=== PATIENT | male | born 1955 | race African-American/Black ===

== ENCOUNTER 2019-06-10 14:11 | Inpatient (IN) | payer OTHER ==
[~2019-06-10] VITALS: Ht 177.8 cm; Wt 181.0 kg
--- NOTE | 2019-06-10 14:11 | NUR ---
PT TO ROOM VIA WHEELCHAIR.
--- NOTE | 2019-06-10 14:20 | NUR ---
PT WITH SOB AND AUDIBLE WHEEZING. 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 PT STATES HE HAS BEEN IN "A LOT OF DUST".
[2019-06-10 14:42] LABS: GFR > 60 ML/MIN (>=60 (CALC)); GFR FOR AFR.AMER. > 60 ML/MIN (>=60 (CALC))
[2019-06-10 14:47] LABS: HEMATOCRIT 39.1 % (39.0-50.0); HEMOGLOBIN 11.1 g/dl (14.0-18.0); IMMATURE GRANULOCYTES 0.2 % (0.0-5.0); MEAN CELL VOLUME 94.7 fL CALC (80.0-100.0); MEAN CORPUSCULAR HGB 26.9 pG CALC (26.0-32.0); MEAN CORPUSCULAR HGB CONC 28.4 g/L CALC (32.0-36.0); RED BLOOD COUNT 4.13 mill/uL (4.70-6.10); RED CELL DISTRI WIDTH 13.6 % (11.5-15.5)
--- NOTE | 2019-06-10 15:00 | NUR ---
PT URINATED 300CC DARK ANUP URINE. SPECIMEN OBTAINED
[2019-06-10 15:19] LABS: ALBUMIN 4.1 g/dL (3.2-5.0); ALKALINE PHOSPHATASE 54 u/l (38-126); ANION GAP 13 (6-22 (CALC)); BILIRUBIN, TOTAL 0.5 mg/dL (0.0-1.4); BUN 16 mg/dL (8-23); BUN/CREATININE RATIO 22 (12-20 (CALC)); CARBON DIOXIDE 32 mmol/l (22-30); CHLORIDE 95 mmol/l (95-108); CREATININE 0.7 mg/dL (0.7-1.3); GFR > 60 ML/MIN (>=60 (CALC)); GFR FOR AFR.AMER. > 60 ML/MIN (>=60 (CALC)); POTASSIUM 4.7 mmol/l (3.5-5.1); SGOT/AST 22 u/l (19-48); SODIUM 136 mmol/l (137-146); TOTAL PROTEIN 7.2 g/dL (6.3-8.2)
--- NOTE | 2019-06-10 15:40 | NUR ---
PT RETURNED FROM CT WITH MILD TACHYPNEA. O2 SAT 95% ON O2@2LPM VIA NC. RT AT BEDSIDE AND NEB TX ADMINISTERED. NOTIFIED BY OIL RECOVERY UNIT OPERATOR LINDA THAT PT WAS GIVEN "A DOUBLE DOSE OF CONTRAST PER RAD MD HUIZAR. AND PT WOULD NEED HYDRATED TO CLEAR THE KIDNEYS" DR HESTER MADE AWARE.
--- NOTE | 2019-06-10 16:34 | NUR ---
EMPTIED 500 CC CLEAR YELLOW URINE. PT STATES "I JUST WANT TO SLEEP".
--- NOTE | 2019-06-10 17:37 | NUR ---
INITATED NEB TX FOR WHEEZING. PT ASSISTED UP TO BED SIDE CHAIR FOR COMFORT. PT STATES BREATHING IS MUCH EASIER SITTING UP. WARM BLANKET FOR COMFORT.
--- NOTE | 2019-06-10 17:40 | NUR ---
PT URINATED 800CC CLEAR STRAW COLORED URINE
--- NOTE | 2019-06-10 17:42 | NUR ---
ATTEMPTED TO CARIN LREPORT. NURSE IN ROOM UNABL ETO TAKE REPORT
--- NOTE | 2019-06-10 18:25 | NUR ---
CALLED REPORT TO EFRAIN TANNER
[2019-06-10] MEDS ORDERED: METOPROL TAR25 MG PO (18:30)
[2019-06-10] MEDS ORDERED: ENALAPRIL10 MG PO (18:30)
[2019-06-10] MEDS ORDERED: LASIX 20 MG TAB20 MG PO (18:31)
[2019-06-10] MEDS ORDERED: GLYBURID MCR1.5 MG PO (18:31)
[2019-06-10] MEDS ORDERED: SYMBICORT1 AE1 IN (18:31)
--- NOTE | 2019-06-10 18:40 | NUR ---
PT TRANSPORTED TO [place] VIA WC ON O2@3LPM VIA NC IN NO DISTRESS
--- NOTE | 2019-06-10 18:45 | NUR ---
PATIENT RECEIVED INTO ROOM 274 FROM ER VIA WC. ALERT AND ORIENTED. RESP WEAVER. ASSISTED TP BED-SITTING AT SIDE OF BED TO EAT DINNER. ORIENTED TO SURROUNDINGS. CALL HUTCHINS IN REACH.
--- NOTE | 2019-06-10 19:45 | NUR ---
PT RESTING IN BED ALERT AND ORIENTED. ASSESSMENT COMPLETED AND VS OBTAINED AT THIS TIME. RESPIRATIONS EVEN AND UNLABORED ON O2 @ 2L VIA NC. LUNGS SOUND DIMINISHED. PEDAL PULSES STRONG. EDEMA NOTED IN THE LOWER EXTREMITIES. PT DENIES ANY PAIN OR DISCOMFORT AT THIS TIME. TELE IN PLACE. PT ORIENTED TO ROOM AND CALL HUTCHINS SYSTEM. SAFEY PRECAUTIONS IN PLACE. WILL CONTINUE TO MONITOR.
[2019-06-10 20:00] VITALS: BP 143/89
--- NOTE | 2019-06-10 20:11 | NUR ---
MD NOTIFIED OF PT BP BEING ELIVATED, CONFIDENTIAL INVESTIGATOR PROVIDED WITH ORDERS TO BE CARRIED OUT.
[2019-06-11] VITALS (7 sets, daily range): BP systolic 110–150; BP diastolic 58–78
--- NOTE | 2019-06-11 01:38 | NUR ---
PT RESTING IN BED, RESPIRATIONS EVEN AND UNLABORED ON O2. NO S/S OF DISTRESS AT THIS TIME. SAFETY PRECAUTIONS IN PLACE. WILL CONTINUE TO MONITOR.
--- NOTE | 2019-06-11 03:54 | NUR ---
PT PROVIDED WITH WENDY PER REQUEST.
--- NOTE | 2019-06-11 07:15 | NUR ---
PATIENT AWAKENS TO NAME. RESP SLT LABORED. NON-PRODUCTIVE COUGH PRESENT. BREATH SOUNDS DIMINISHED THROUGHOUT LUNG MARIE. GNERALIZED EDEMA PRESENT. 4+ PITTING EDEMA OF BLE. SALINE LOCK INTACT IN RAC, SITE HEALTHY. VOIDS CLEAR YELLOW URINE. TELEMETRY IN PLACE SHOWING SR. DISCUSSED PLAN OF CARE. DENIES NEEDS AT THIS TIME. CALL HUTCHINS IN REACH.
--- NOTE | 2019-06-11 10:00 | NUR ---
PATIENT NAPPING. O2 ON AT 4 L NC.
--- NOTE | 2019-06-11 11:50 | NUR ---
UP TO BR FOR BM THEN SO SIDE OF BED FOR LUNCH. SOB INCREASED WITH EXERTION.
--- NOTE | 2019-06-11 13:30 | NUR ---
O2 DECREASED TO 3 L NC. O2 SAT 97% WILL MONITOR PATIENT CLOSELY FOR DESATURATION.
--- NOTE | 2019-06-11 14:00 | NUR ---
ASSISTED UP TO RECLINER. O2 DECREASED TO 2 L NC. O2 SAT 95%
--- NOTE | 2019-06-11 14:30 | NUR ---
O2 DECREASED TO 1 L NC.
--- NOTE | 2019-06-11 15:00 | NUR ---
O2 SAT 93-94% ON O2 AT 1 L NC.
--- NOTE | 2019-06-11 16:00 | NUR ---
REMAINS UP IN RECLINER. RESP NON-LABORED AT REST. O2 SAT 93-94% ON I L O2 PER NC.
--- NOTE | 2019-06-11 19:30 | NUR ---
PATIENT SITTING UP IN RECLINER WITH O2 VIA NASAL CANNULA IN PLACE. PATIENT IS AWAKE ALERT AND ORIENTEDX3. PATIENT IS SOB EVEN AT REST. LUNGS ARE DIMINISHED THOUGHTOUT. TELE MONITOR IN PLACE. IV SITE TO RAC INTACT AND HEALTHY AT THIS ITME WITH GOOD BLOOD RETURN. BLE EDEMA 4+-ENCOURAGED ELEVATION. SAFETY PRECAUTIONS REINFORCED. CALL LIGHT IN REACH. WILL CONT TO MONITOR.
--- NOTE | 2019-06-11 22:30 | NUR ---
PATIENT WAS FOUND DIRTY FROM BM AND ASSISTED WITH COMPLETE BED BATH AND LINEN CHANGE. ACCU-CHECK WAS 194. COVERED WITH NOVALOG 1UNITS PER SLIDING SCALE COVERGE PROTOCOL. ROCEPHIN HUNG ORDERED VIA [facility] SITE. SITE REMAINS HEALTHY WITH GOOD BLOOD RETURN. PATIENT PROVIDED WITH HS SNACK. PATIENT WITH O2 IN PLACE AND STILL SOB WITH LITTLE OR NO EXHERTION. PATIENT STATES THAT HE NORMALLY USES C-PAP AT HOME BUT DOESN'T HAVE IT WITH HIM HERE. STATES THAT HE LIVES IN [place] TRAVELING WITH [facility]. SAFETY PRECAUTIONS REINFORCED. CALL LIGHT IN REACH. WILL CONT TO MONITOR.
--- NOTE | 2019-06-12 01:01 | NUR ---
RESPONDED TO PATIENT ROOM TO CHECK TELE MONITOR. PATIENT IS SITTING UP ON THE SIDE OF THE BED WITH O2 OFF. 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 PATIENT WITH BELONGINGS BAGS GOING THRY THEM. PATIENT LINEN AND SELF FOUND AGAIN WITH BROWN STOOL. PATIENT ASSISTED TO BSC AND O2 REAPPLIED. PATIENT HAD MOD AMT OF FORMED BROWN STOOL. BEING ASSISTED IN SHOWER AT THIS TIME. LINENS TO BED CHANGED AGAIN. WILL CONT TO MONITOR.
[2019-06-12 01:13] VITALS: BP 136/72
--- NOTE | 2019-06-12 04:00 | NUR ---
PATIENT APPEARS SLEEPING ON HIS SIDE WITH O2 VIA NASAL CANNULA IN PLACE. EYES CLOSED. CALL LIGHT IN REACH. WILL CONT TO MONITOR.
[2019-06-12 04:15] VITALS: BP 121/59
[2019-06-12 06:40] LABS: HEMATOCRIT 38.5 % (39.0-50.0); MEAN CELL VOLUME 95.8 fL CALC (80.0-100.0); MEAN CORPUSCULAR HGB 27.4 pG CALC (26.0-32.0); MEAN CORPUSCULAR HGB CONC 28.6 g/L CALC (32.0-36.0); RED BLOOD COUNT 4.02 mill/uL (4.70-6.10); RED CELL DISTRI WIDTH 13.2 % (11.5-15.5)
[2019-06-12 06:54] LABS: ALKALINE PHOSPHATASE 52 u/l (38-126); BILIRUBIN, TOTAL 0.3 mg/dL (0.0-1.4); BUN 25 mg/dL (8-23); BUN/CREATININE RATIO 39 (12-20 (CALC)); CHLORIDE 93 mmol/l (95-108); CREATININE 0.7 mg/dL (0.7-1.3); GFR > 60 ML/MIN (>=60 (CALC)); GFR FOR AFR.AMER. > 60 ML/MIN (>=60 (CALC)); SGOT/AST 24 u/l (19-48); SODIUM 137 mmol/l (137-146); TOTAL PROTEIN 7.3 g/dL (6.3-8.2)
[2019-06-12 07:01] LABS: ANION GAP 11 (6-22 (CALC)); CARBON DIOXIDE 38 mmol/l (22-30)
[2019-06-12 07:25] LABS: POTASSIUM 5.4 mmol/l (3.5-5.1)
[2019-06-12 07:34] VITALS: BP 136/65
--- NOTE | 2019-06-12 08:15 | NUR ---
PT IS RESTING IN HIS RIGHT SIDE. ASSESSMENT DONE. PT IS ALERT BUT DROWSY. PT DENIES PAIN AT THIS TIME. TELE IN PLACE. 02 2.5L VIA VT. PT DENIES NEEDS AT THIS TIME. CALL LIGHT IN REACH.
[2019-06-12 10:50] VITALS: BP 138/85
--- NOTE | 2019-06-12 11:00 | NUR ---
PT IS VISITING IN ROOM WITH FRIENDS. CALL LIGHT IN REACH.
--- NOTE | 2019-06-12 12:00 | NUR ---
PT IS SITTING IN THE SIDE OF THE BED EAT HIS LUNCH. PT DENIES ANY NEEDS AT THIS TME. CALL LIGHT IN REACH.
--- NOTE | 2019-06-12 16:04 | NUR ---
PT IS SITTING IN THE SIDE OF THE BED. PT DENIES NEEDS AT THIS TIME. CALL LIGHT IN REACH.
[2019-06-12 16:30] VITALS: BP 154/85
[2019-06-12 19:10] VITALS: BP 148/64
--- NOTE | 2019-06-12 19:30 | NUR ---
PATIENT RESTING IN BED WITH HOB ELEVATED AND O2 VIA NASAL CANNULA IN PLACE. PATIENT IS STILL SOB WITH LITTLE OR NO EXHERSION. AWAKE ALERT AND ORIENTED-STILL DIFFICULT TO UNDERSTAND AT TIMES. LUNGS DIMINISHED THROUGHOUT. TELE MONITOR IN PLACE. BLE SWELLING. ENCOURAGED TO ELEVATE ON PILLOWS WHEN POSSIBLE. SALINE LOCK TO RAC INTACT-APPEARS HEALTHY AT THIS TIME. SAFETY PRECAUTIONS REINFORCED. CALL LIGHT IN REACH. WILL CONTTO MONITOR.
--- NOTE | 2019-06-13 | NUR ---
PATIENT APPEARS SLEEPING AT THIS TIME WITH O2 VIA NASAL CANNULA IN PLACE. HOB ELEVATED. TELE MONITOR IN PLACE. CALL LIGHT IN REACH. WILL CONT TO MONITOR.
--- NOTE | 2019-06-13 03:56 | NUR ---
PATIENT RESTING IN BED WITH HOB ELEVATED AND O2 VIA NASAL CANNULA IN PLACE. EYES CLOSED AND APPEARS SLEEPING. NOISEY BREATHING NOTED. TELE MONITOR IN PLACE. IV SITE TO RIGHT AC INTACT. CALL LIGHT IN REACH. WILL CONT TO MONITOR.
[2019-06-13 04:13] VITALS: BP 149/66
[2019-06-13 05:21] LABS: HEMATOCRIT 38.8 % (39.0-50.0); HEMOGLOBIN 11.1 g/dl (14.0-18.0); IMMATURE GRANULOCYTES 0.4 % (0.0-5.0); MEAN CELL VOLUME 95.1 fL CALC (80.0-100.0); MEAN CORPUSCULAR HGB 27.2 pG CALC (26.0-32.0); MEAN CORPUSCULAR HGB CONC 28.6 g/L CALC (32.0-36.0); NEUT# 12.41 thou/uL (1.82-7.42); RED BLOOD COUNT 4.08 mill/uL (4.70-6.10); RED CELL DISTRI WIDTH 13.3 % (11.5-15.5)
[2019-06-13 05:52] LABS: ALBUMIN 4.1 g/dL (3.2-5.0); ALKALINE PHOSPHATASE 52 u/l (38-126); ANION GAP 12 (6-22 (CALC)); BILIRUBIN, TOTAL 0.4 mg/dL (0.0-1.4); BUN 25 mg/dL (8-23); BUN/CREATININE RATIO 37 (12-20 (CALC)); CARBON DIOXIDE 38 mmol/l (22-30); CHLORIDE 94 mmol/l (95-108); CREATININE 0.7 mg/dL (0.7-1.3); GFR > 60 ML/MIN (>=60 (CALC)); GFR FOR AFR.AMER. > 60 ML/MIN (>=60 (CALC)); POTASSIUM 5.1 mmol/l (3.5-5.1); SGOT/AST 20 u/l (19-48); SODIUM 138 mmol/l (137-146); TOTAL PROTEIN 7.4 g/dL (6.3-8.2)
[2019-06-13 07:53] VITALS: BP 128/82
--- NOTE | 2019-06-13 09:00 | NUR ---
PT ALERT AND ORIENTED X 3, LARGE MAN. LUNGS CLEAR BUT SOUND DIMINISHED PER GIRTH. SKIN INTACT. PT RECEIVING RESP TXs. VSS,
[2019-06-13 12:21] VITALS: BP 134/79
[2019-06-13 15:30] VITALS: BP 146/66
--- NOTE | 2019-06-13 18:00 | NUR ---
PT HAS BEEN FITTED WITH C-PAP MASK, WHICH HE WILL TRY TO USE TONIGHT. PT WITH VISITORS AT BEDSIDE THIS AFTERNOON.
[2019-06-13 19:00] VITALS: BP 113/66
--- NOTE | 2019-06-13 20:00 | NUR ---
PATIENT RESTING IN BED WITH HOB ELEVATED AND O2 VIA NASAL CANNULA IN PLACE. PATIENT IS AWAKE ALERT AND ORIENTEDX3-SPEECH IS SOMEWHAT GARBLED BUT ABLE TO UNDERSTAND. PATIENT WITH NO NEEDS VOICED AT THIS ITME. TELE MONITOR IN PLACE.SALINE LOCK TO RIGHT AC INTACT AND APPEARSHEALTHY AT THIS TIME. STILL WITH BLE SWELLING-ENCOURGAED ELEVATION WHEN ABLE. SAFETY PRECAUTIONS REINFORCED. CALL LIGHT IN REACH. WILL CONT TO MONITOR.
--- NOTE | 2019-06-14 | NUR ---
PATIENT RESTING IN BED AT THIS TIME WITH HOB ELEVATED AND O2 VIA NASAL CANNULA IN PLACE. EYES CLOSED APPEARS SLEEPING. TELE MONITOR IN PLACE. SALINE LOCK TO RIGHT AC INTACT-APPEARS HEALTHY AT THIS TIME. SPOKE WITH URBANO LEONARD-STATES THAT PATIENT REFUSED C-PAP TONIGHT. VOIDING QS ANUP URINE IN URINAL. CALL LIGHT IN REACH. WILL CONT TO MONITOR.
[2019-06-14 00:16] VITALS: BP 122/68
[2019-06-14 03:45] VITALS: BP 126/75
--- NOTE | 2019-06-14 05:00 | NUR ---
PATIENT APPEARS SLEEPING IN BED AT THIS TIME. POSITIONED ON LEFT SIDE. O2 VIA NASAL CANNULA IN PLACE. TELE MONITOR IN PLACE. CALL LIGHT IN REACH. WILL CONT TO MONITOR.
[2019-06-14 05:43] LABS: HEMATOCRIT 38.1 % (39.0-50.0); MEAN CORPUSCULAR HGB 27.4 pG CALC (26.0-32.0); MEAN CORPUSCULAR HGB CONC 28.9 g/L CALC (32.0-36.0); RED BLOOD COUNT 4.01 mill/uL (4.70-6.10); RED CELL DISTRI WIDTH 13.3 % (11.5-15.5)
[2019-06-14 06:02] LABS: BUN 30 mg/dL (8-23); BUN/CREATININE RATIO 41 (12-20 (CALC)); CHLORIDE 92 mmol/l (95-108); CREATININE 0.7 mg/dL (0.7-1.3); GFR > 60 ML/MIN (>=60 (CALC)); GFR FOR AFR.AMER. > 60 ML/MIN (>=60 (CALC)); SODIUM 137 mmol/l (137-146)
[2019-06-14 06:07] LABS: ANION GAP 10 (6-22 (CALC)); CARBON DIOXIDE > 40 mmol/l (22-30)
[2019-06-14 07:30] VITALS: BP 118/61
--- NOTE | 2019-06-14 09:00 | NUR ---
PT AWAKE, ALERT, ORIENTED X 3, LARGE MAN. LUNGS CLEAR BUT DIMINISHED PER GIRTH, USES 4 LPM NC. PT WEAVER. NO ACUTE DISTRESS NOTED.
[2019-06-14 11:39] VITALS: BP 160/86
[2019-06-14] MEDS ORDERED: PREDNISONE10 MG PO (12:19)
[2019-06-14] MEDS ORDERED: Levaquin PO (12:23)
[2019-06-14] MEDS ORDERED: IPRATROPIU0.5 MG/3 M IN (13:01)
--- NOTE | 2019-06-14 13:05 | NUR ---
PT SEEN BY DR FRAZIER AND KEAGAN THIS MORNING, DISCUSSED DISCHARGE TODAY. PT REMAINS STABLE, NO COMPLAINTS OR EVIDENCE OF DISTRESS.
--- NOTE | 2019-06-14 13:56 | NUR ---
PT HAS BEEN DISCHARGED TO HOME AT THIS TIME. PT VERBALIZED UNDERSTANDING OF DC INSTRUCTIONS, TAKEN BY LARGE WHEELCHAIR TO VEHICLE BY VOLUNTEER. PT LEAVES [facility] IN STABLE CONDITION.
== END 2019-06-14 14:00 | disposition home or self-care (01) | DRG 190 ==
LOC: ED 14:11 → ED-I 16:43 → ED 17:08 → MS2 17:09
PROVIDERS: Family Medicine; Nurse Practitioner Family; ADMIT Internal Medicine; ATTEND Internal Medicine
DX: J44.1 Chronic obstructive pulmonary disease with (acute) exacerbation (principal); J96.22 Acute and chronic respiratory failure with hypercapnia; J96.21 Acute and chronic respiratory failure with hypoxia; Z68.43 Body mass index [BMI] 50.0-59.9, adult; E11.9 Type 2 diabetes mellitus without complications; I10 Essential (primary) hypertension; G47.33 Obstructive sleep apnea (adult) (pediatric); E66.01 Morbid (severe) obesity due to excess calories; Z91.19 Patient's noncompliance with other medical treatment and regimen; Z79.84 Long term (current) use of oral hypoglycemic drugs; Z87.891 Personal history of nicotine dependence
CPT/HCPCS: J1650

== ENCOUNTER 2019-06-14 15:28 | Observation (INO) | payer OTHER ==
[~2019-06-14] VITALS: Ht 177.8 cm; Wt 176.0 kg
[~2019-06-14 15:28] MED LIST: ENALAPRIL10 MG PO; GLYBURID MCR1.5 MG PO; IPRATROPIU0.5 MG/3 M IN; LASIX 20 MG TAB20 MG PO; Levaquin PO; METOPROL TAR25 MG PO; PREDNISONE10 MG PO; SYMBICORT1 AE1 IN
--- NOTE | 2019-06-14 15:33 | NUR ---
PATIENT TO ROOM VIA WHEELCHAIR AND PHYSICIAN NOTIFIED OF PATIENT STATUS
--- NOTE | 2019-06-14 16:00 | NUR ---
PT PRESENTED WITH SOB BECAUSE HE DOES NOT HAVE O2 AT HOME AND HE STATES BEING O2 DEPENDENT. PT IS AT 2 L OF O2 NC. HOB ELEVATED. WILL CONTINUE TO MONITOR.
--- NOTE | 2019-06-14 17:20 | NUR ---
CALLED REPORT TO ANSHU
--- NOTE | 2019-06-14 17:30 | NUR ---
REPORT RECEIVED FROM ANNETTE IN ED, PT TRANSPORTED TO UNIT VIA W/C @ 1730 AND TRANSFERRED TO BED. O2 @ 2.5L VIA NC IN PLACE, TELE MONITOR IN PLACE. ORIENTED TO ROOM AND CALL HUTCHINS. ASSISTED TO BR AND WITH TRISTEN-CARE, SETTLED IN BED, WILL CONTINUE TO MONITOR.
--- NOTE | 2019-06-14 17:32 | NUR ---
PT TRANSPORTED TO [facility] VIA W/C STABLE AND NO DISTRESS WITH O2 AT 2 L. CARE ASSUMED TO ANSHU
[2019-06-14 17:59] VITALS: BP 149/77
[2019-06-14 19:30] VITALS: BP 131/80
--- NOTE | 2019-06-14 20:00 | NUR ---
ASSESSMENT COMPLETED. SOB ON EXERTION NOTED. O2 INFUSING PER NC PER ORDER AND CPAP AT BEDSIDE; NOTIFIED RT TO SET UP FOR PT. LARGE SKIN TAG NOTED TO LEFT BUTTOCK INTACT. TELEMETRY IN PLACE. UPDATED ON POC. CALL LIGHT IS IN REACH. WILL CONTINUE TO MONITOR.
--- NOTE | 2019-06-14 20:35 | NUR ---
SPOKE WITH DR. EUCEDA AND NOTIFIED DIVINE OF NO MEDICATION ORDERS FOR PT. PER MD SHE WILL PLACE ORDERS IN COMPUTER.
[2019-06-14 23:40] VITALS: BP 142/79
--- NOTE | 2019-06-15 | NUR ---
SITTING UP IN BED AND ASKING FOR A SNACK; PROVIDED AT THIS TIME. ENCOURAGED TO LEAVE CPAP ON. URINAL EMPTIED. CALL LIGHT IS IN REACH.
--- NOTE | 2019-06-15 02:30 | NUR ---
PT. SITTING UP IN BED AGAIN ASKING FOR ANOTHER SNACK AND SOMETHING TO DRINK; PROVIDED AT THIS TIME. CALL LIGHT AND URINAL IN REACH.
[2019-06-15 03:56] VITALS: BP 135/74
[2019-06-15 05:12] LABS: HEMATOCRIT 39.2 % (39.0-50.0); HEMOGLOBIN 11.4 g/dl (14.0-18.0); IMMATURE GRANULOCYTES 0.3 % (0.0-5.0); MEAN CELL VOLUME 95.1 fL CALC (80.0-100.0); MEAN CORPUSCULAR HGB 27.7 pG CALC (26.0-32.0); MEAN CORPUSCULAR HGB CONC 29.1 g/L CALC (32.0-36.0); NEUT# 7.77 thou/uL (1.82-7.42); RED BLOOD COUNT 4.12 mill/uL (4.70-6.10); RED CELL DISTRI WIDTH 13.4 % (11.5-15.5)
[2019-06-15 05:30] LABS: ALBUMIN 3.5 g/dL (3.2-5.0); ALKALINE PHOSPHATASE 43 u/l (38-126); BUN 30 mg/dL (8-23); BUN/CREATININE RATIO 39 (12-20 (CALC)); CHLORIDE 91 mmol/l (95-108); CREATININE 0.8 mg/dL (0.7-1.3); GFR > 60 ML/MIN (>=60 (CALC)); GFR FOR AFR.AMER. > 60 ML/MIN (>=60 (CALC)); POTASSIUM 4.5 mmol/l (3.5-5.1); SGOT/AST 21 u/l (19-48); SODIUM 136 mmol/l (137-146); TOTAL PROTEIN 6.5 g/dL (6.3-8.2)
[2019-06-15 05:36] LABS: ANION GAP 11 (6-22 (CALC)); BILIRUBIN, TOTAL 0.8 mg/dL (0.0-1.4); CARBON DIOXIDE 39 mmol/l (22-30)
--- NOTE | 2019-06-15 05:40 | NUR ---
PT. DECLINED HEPARIN SHOT AND REPORTS HE WANTS TO SPEAK TO MD PRIOR TO ANYMORE MEDICATIONS.
--- NOTE | 2019-06-15 07:13 | NUR ---
SHIFT CHANGE REPORT, PT AWAKE ALERT AND ORIENTED RESTING IN BED, C-PAP IN PLACE, TELE MONITOR IN PLACE STATES HE FEELS OK BUT HAS MUCH CONCERNS ABOUT HIS MEDICATION, ADVISED WILL ADDRESS CONCERNS TOBIAS WHEN MEDICAL STAFF GETS HERE. BED IN LOWEST POSITION AND CALL HUTCHINS IN REACH.
[2019-06-15 08:05] VITALS: BP 113/73
--- NOTE | 2019-06-15 08:21 | NUR ---
PT REFUSING TO TAKE PREDNISONE AND LISINOPRIL STATING THOSE ARE NOT ANY OF HIS MEDICATIONS AND THAT HIS MED STARTS WITH AND "E" BUT UNABLE TO TELL ME THE NAME, SAID HE WANTS TO REVIEW MEDS WITH MD WHEN HE GETS HERE.
[2019-06-15 10:40] VITALS: BP 127/78
--- NOTE | 2019-06-15 12:00 | NUR ---
SITTING UP IN RECLINER, COMPANY DELIVERED 5 CYLINDERS O2 BUT PT STATED HE LIVES IN [facility], O2 REP EXPLAINED HOW TO USE PORTABLE OXYGEN AND INFORMED PT THOSE TANKS WILL NOT LAST TOO LONG. REP STAYED IN ROOM AT LEAST 45 MINS TRYING TO SOLVE SITUATION AND FINALLY LEFT 5 TANKS WHEN PT COULD NOT CONTACT ANY FAMIY MEMBER WHO WOULD ACCOMMODATE HIM TEMPORARILY WITH HIS O2 NEEDS.
[2019-06-15 15:20] VITALS: BP 130/78
--- NOTE | 2019-06-15 16:00 | NUR ---
PT SITTING UP IN CHAIR, CONVERSING ON PHONE, CALL HUTCHINS IN REACH, WILL CONTINUE TO MONITOR.
[2019-06-15 19:16] VITALS: BP 133/78
[2019-06-15 23:49] VITALS: BP 130/77
[2019-06-16 04:26] VITALS: BP 137/87
--- NOTE | 2019-06-16 06:21 | NUR ---
PT HAS NO C/O PAIN/DISCOMFORT, PT STATES PAIN IS 0/10 ON PAIN SCALE. PT IS STABLE WITH NO S/S OF ANY ACUTE DISTRESS NOTED.
--- NOTE | 2019-06-16 07:00 | NUR ---
SHIFT CHANGE REPORT, PT SITTING UP IN KEVIN SLEEPING, AWAKENED TO VERBAL STIMULI, NURSE REVIEWED AND EDUCATED PT ON AM MEDICATIONS, HE STATED UNDERSTANDING AND CLMPLIED. O2 @ 3L VIA NC IN PLACE, TELE MONITOR IN PLACE, NO C/O DISCOMFORT, CALL HUTCHINS IN REACH.
[2019-06-16 07:49] VITALS: BP 127/75
[2019-06-16 11:18] VITALS: BP 120/61
--- NOTE | 2019-06-16 14:00 | NUR ---
Discharge instructions given. Patient verbalizes understanding of same. Discharged in stable condition via Wheelchair to Home with family. All belongings sent with pt.
== END 2019-06-16 13:28 | disposition home or self-care (01) | DRG 189 ==
LOC: ED 15:28 → ED-I 15:40 → ED 16:11 → MS2 16:12
PROVIDERS: Internal Medicine; ADMIT Internal Medicine; ATTEND Internal Medicine
DX: J96.21 Acute and chronic respiratory failure with hypoxia (principal); Z68.43 Body mass index [BMI] 50.0-59.9, adult; J96.22 Acute and chronic respiratory failure with hypercapnia; J43.9 Emphysema, unspecified; E11.9 Type 2 diabetes mellitus without complications; G47.33 Obstructive sleep apnea (adult) (pediatric); I10 Essential (primary) hypertension; E66.9 Obesity, unspecified; Z87.891 Personal history of nicotine dependence; Z79.84 Long term (current) use of oral hypoglycemic drugs; Z99.81 Dependence on supplemental oxygen; Z23 Encounter for immunization
CPT/HCPCS: G0378